=== PATIENT | female | born 1945 | race African-American/Black ===

== ENCOUNTER 2022-02-26 14:23 | Outpatient (CLI) | payer MEDICARE, BC | END 2022-02-26 14:24 | disposition home or self-care (01) | LOC: CSHMAMMO 14:23 | PROVIDERS: ATTEND Family Medicine | DX: Z12.31 Encounter for screening mammogram for malignant neoplasm of breast (principal); Z85.528 Personal history of other malignant neoplasm of kidney | CPT/HCPCS: 77063; 77067 ==

== ENCOUNTER 2023-03-03 13:15 | Outpatient (CLI) | payer MEDICARE, BC | END 2023-03-03 13:16 | disposition home or self-care (01) | LOC: CSHMAMMO 13:15 | PROVIDERS: ATTEND Family Medicine | DX: Z12.31 Encounter for screening mammogram for malignant neoplasm of breast (principal); Z85.528 Personal history of other malignant neoplasm of kidney | CPT/HCPCS: 77063; 77067 ==

== ENCOUNTER 2023-08-05 17:15 | Emergency (ER) | payer MEDICARE, BC | END 2023-08-05 18:55 | disposition home or self-care (01) | LOC: CSHERS 17:15 | DX: R04.0 Epistaxis (principal); E78.00 Pure hypercholesterolemia, unspecified; I10 Essential (primary) hypertension; E11.9 Type 2 diabetes mellitus without complications; Z55.6 Problems related to health literacy | CPT/HCPCS: 99282 ==

== ENCOUNTER 2023-08-13 12:04 | Emergency (ER) | payer MEDICARE | END 2023-08-13 15:00 | disposition home or self-care (01) | LOC: CSHERS 12:04 → EEVIPCON 12:04 → CSHERS 15:00 | DX: R04.0 Epistaxis (principal); I10 Essential (primary) hypertension; E11.9 Type 2 diabetes mellitus without complications; I25.10 Atherosclerotic heart disease of native coronary artery without angina pectoris | CPT/HCPCS: 99283 ==

== ENCOUNTER 2023-08-17 13:20 | Emergency (ER) | payer MEDICARE | END 2023-08-17 14:25 | disposition left against medical advice (07) | LOC: CSHERS 13:20 | DX: Z53.21 Procedure and treatment not carried out due to patient leaving prior to being seen by health care provider (principal) ==

== ENCOUNTER 2024-03-15 14:32 | Outpatient (CLI) | payer MEDICARE | END 2024-03-15 14:33 | disposition home or self-care (01) | LOC: CSHMAMMO 14:32 | PROVIDERS: ATTEND Family Medicine | DX: Z12.31 Encounter for screening mammogram for malignant neoplasm of breast (principal); Z85.528 Personal history of other malignant neoplasm of kidney | CPT/HCPCS: 77067 ==

== ENCOUNTER 2024-07-17 17:16 | Outpatient (CLI) | payer MEDICARE ==
[2024-07-17 17:55] LABS: #Basophils 0.04 10x3/uL (0.0-0.2); #Eosinophils 0.12 10x3/uL (0.0-0.5); #Monocytes 0.45 10x3/uL (0.0-1.1); #Neutrophils 6.09 10x3/uL (1.5-8.4); %Basophils 0.5 % (0.0-2.0); %Eosinophils 1.6 % (0.0-6.0); %Lymphocytes 11.5 % (18.0-47.0); %Monocytes 5.9 % (0.0-10.0); %Neutrophils 79.8 % (40.0-75.0); Mean Corpuscular HGB CONC 33.3 g/dL (32.0-36.0); Mean Corpuscular Hemoglobin 37.9 pg (27.0-33.0); Mean Corpuscular Volume 113.8 fL (81.6-98.3); Mean Platelet Volume 10.3 fL (7.4-10.4); Platelet Count 611 10x3/uL (150-450); RBC Distribution Width 13.9 % (11.5-14.5); White Blood Cell (WBC) Count 7.63 10x3/uL (3.5-10.5)
[2024-07-17 18:07] LABS: MDiff Complete? YES
== END 2024-07-17 17:17 | disposition home or self-care (01) ==
LOC: CSHLAB 17:16
PROVIDERS: ATTEND Otolaryngology
DX: R04.0 Epistaxis (principal)
CPT/HCPCS: 36415; 85025